=== PATIENT | female | born 1985 | race Caucasian/White ===

== ENCOUNTER 2020-02-06 16:31 | Emergency (ER) | payer MEDICAID ==
[~2020-02-06] VITALS: Ht 157.5 cm; Wt 53.0 kg
[2020-02-06] MEDS ORDERED: TETANUS, DIPHTHERIA, PERTUSSIS VAC/PF 0.5ML (>7YR OLD) IM ONE (18:00)
[2020-02-06] MEDS ORDERED: LIDOCAINE HCL/PF 1% 10 MG/ML 5ML VIAL IJ ONE (18:00)
[2020-02-06] MEDS ORDERED: IBUPROFEN 600MG TABLET PO ONE (18:00)
[2020-02-06] MEDS ORDERED: CEPHALEXIN 250MG CAPSULE PO ONE (18:00)
[2020-02-06] MEDS ORDERED: SULFAMETHOXAZOLE/TRIMETHOPRIM 800/160MG TABLET PO ONE (18:00)
[2020-02-06] MEDS ORDERED: BACITRACIN ZINC OINT UDPKT TOP ONE (18:00)
[2020-02-06 18:50] VITALS: BP 115/73
== END 2020-02-06 18:54 | disposition home or self-care (01) ==
LOC: ER 16:31
DX: N76.0 Acute vaginitis (principal); Z98.890 Other specified postprocedural states; Z98.51 Tubal ligation status
CPT/HCPCS: 10060; 90471; 90715; 99284; J3490

== ENCOUNTER 2020-02-08 08:32 | Emergency (ER) | payer MEDICAID ==
[~2020-02-08] VITALS: Ht 157.5 cm; Wt 53.0 kg
[2020-02-08 08:34] VITALS: BP 111/62
== END 2020-02-08 09:55 | disposition home or self-care (01) ==
LOC: ER 08:32
DX: S31.41XD Laceration without foreign body of vagina and vulva, subsequent encounter (principal); X58.XXXD Exposure to other specified factors, subsequent encounter
CPT/HCPCS: 99282

== ENCOUNTER 2020-04-05 12:40 | Emergency (ER) | payer MEDICAID ==
[~2020-04-05] VITALS: Ht 157.5 cm; Wt 53.0 kg
[2020-04-05 12:42] VITALS: BP 129/83
== END 2020-04-05 15:29 | disposition home or self-care (01) ==
LOC: ER 14:03
DX: L73.8 Other specified follicular disorders (principal); Z98.51 Tubal ligation status
CPT/HCPCS: 99283

== ENCOUNTER 2020-04-10 09:31 | Emergency (ER) | payer MEDICAID ==
[~2020-04-10] VITALS: Ht 157.5 cm; Wt 45.0 kg
[2020-04-10] MEDS ORDERED: BACITRACIN ZINC OINT UDPKT TOP ONE (10:15)
[2020-04-10] MEDS ORDERED: LIDOCAINE 1%/EPI 1:100,000 10 ML VIAL IJ ONE (10:15)
[2020-04-10] MEDS ORDERED: LIDOCAINE HCL/EPINEPHRINE 1%-EPI 1:100,000 20 ML VIAL INFIL NR (10:30)
[2020-04-10] MEDS ORDERED: ACETAMINOPHEN 500MG TABLET PO ONE (12:45)
[2020-04-10] MEDS ORDERED: IBUPROFEN 800MG TABLET PO ONE (12:45)
[2020-04-10 14:14] VITALS: BP 105/49
== END 2020-04-10 14:15 | disposition home or self-care (01) ==
LOC: ER 09:52
DX: N75.0 Cyst of Bartholin's gland (principal); Z98.51 Tubal ligation status
CPT/HCPCS: 99284; J3490